=== PATIENT | male | born 1960 | race Caucasian/White ===

== ENCOUNTER 2018-12-19 05:56 | Day surgery (SDC) | payer OTHER ==
[~2018-12-19] VITALS: Ht 175.3 cm; Wt 128.0 kg
[~2018-12-19 05:56] MED LIST: PROTONICS
[2018-12-19] MEDS ORDERED: GLYCOPYRROLATE 0.4 MG INJ ONE (07:00)
[2018-12-19 07:25] VITALS: Ht 175.3 cm; Wt 128.0 kg
--- NOTE | 2018-12-19 07:25 | PREAC ---
Date/Time of Note Date/Time of Note DATE: 12/19/18 TIME: 07:24 Anesthesia Eval and Record Evaluation Time Pre-Procedure Interview DATE: 12/19/18 TIME: 07:24 Age 58 Sex male NPO: 8 hrs Preoperative diagnosis screening Planned procedure colonoscopy Past Medical History Past Medical History: Includes Cardio: HTN, Dyslipidemia Endo: Hypothyroid Pulm: Asthma Musculoskeletal: Osteoarthritis GI: GERD Heme: Anemia Infection(s): Hep C Surgery & Anesthesia Issues No known issue Meds Anticoagulation: No Beta Tong within 24 hr: No Reason Beta Tong not given: Pt. not on B-Tong Reported Medications [Protonics] No Conflict Check, DAILY 01/11/12 Meds reviewed: Yes Allergies Coded Allergies: No Known Drug Allergies (Verified Allergy, Unknown, 12/19/18) Allergies Reviewed: Yes Labs/Studies Labs Reviewed: Reviewed by anesthesiologist test: N/A Studies: ECG Pre-procedure Exam Airway: Adequate mouth opening, Adequate thyromental dist Mallampati: Mallampati II Teeth: Normal Lung: Normal Heart: Normal ASA Physical Status ASA physical status: 3 Emergency: None Planned Anesthetic General/MAC: Mask Pre-operative Attestations Prior to commencing anesthesia and surgery, the patient was re-evaluated, there was verification of: *The patient's identity *The results of appropriate recent lab work and preoperative vital signs *The above evaluation not changing prior to induction *Anesthetic plan, risk benefits, alternative and complications discussed with patient/family; questions answered; patient/family understands, accepts and wishes to proceed. YU MACHUCA December 19, 2018 07:25
[2018-12-19] MEDS ORDERED: PROPOFOL 40 ML ONE (07:29)
[2018-12-19] MEDS ORDERED: LIDOCAINE 100 MG SYRINGE ONE (07:29)
[2018-12-19] MEDS ORDERED: LISINOPRIL (07:33)
[2018-12-19] MEDS ORDERED: PROTONIX (07:33)
[2018-12-19] MEDS ORDERED: SYNTHROID (07:33)
[2018-12-19] MEDS ORDERED: DULERA (07:33)
[2018-12-19 07:43] VITALS: BP 149/78; PULSE 76; RESP 16
[2018-12-19 08:48] VITALS: BP 126/66; PULSE 67; RESP 24
--- NOTE | 2018-12-21 10:26 | PAC ---
Date/Time of Note Date/Time of Note DATE: 12/21/18 TIME: 10:26 Post-Anesthesia Notes Post-Anesthesia Note Last documented vital signs Vital Signs Date Temp Pulse Resp B/P (MAP) Pulse Ox O2 O2 Flow FiO2 Time Delivery Rate 12/19/18 67 24 126/66 99 Room Air 08:48 (86) 12/19/18 97.6 07:43 Activity: WNL Respiratory function: WNL Cardiovascular function: WNL Mental status: Baseline Pain reasonably controlled: Yes Hydration appropriate: Yes Nausea/Vomiting absent: Yes YU MACHUCA December 21, 2018 10:26
== END 2018-12-19 11:31 | disposition home or self-care (01) ==
LOC: GIL 05:56
PROVIDERS: ATTEND Internal Medicine Gastroenterology
DX: Z12.11 Encounter for screening for malignant neoplasm of colon (principal); K64.8 Other hemorrhoids; K57.30 Diverticulosis of large intestine without perforation or abscess without bleeding; Z86.010 Personal history of colon polyps; I10 Essential (primary) hypertension; E03.9 Hypothyroidism, unspecified; E78.5 Hyperlipidemia, unspecified; J45.909 Unspecified asthma, uncomplicated
CPT/HCPCS: 45378; J2001